=== PATIENT | male | born 1970 | race African-American/Black ===

== ENCOUNTER 2019-12-31 15:35 | Emergency (ER) | payer SELFPAY ==
[~2019-12-31] VITALS: Ht 185.4 cm; Wt 114.0 kg
[2019-12-31] MEDS ORDERED: KETOROLAC 30MG/ML VIAL IM ONE (16:15)
[2019-12-31 18:53] VITALS: BP 180/94
== END 2019-12-31 19:11 | disposition home or self-care (01) ==
LOC: ER 15:35
DX: S90.02XA Contusion of left ankle, initial encounter (principal); S90.32XA Contusion of left foot, initial encounter; X58.XXXA Exposure to other specified factors, initial encounter; Y93.89 Activity, other specified; Y92.89 Other specified places as the place of occurrence of the external cause
CPT/HCPCS: 73610; 73630; 96372; 99284; J1885; Z7610